=== PATIENT | female | born 1960 | race African-American/Black ===

== ENCOUNTER 2016-06-15 17:31 | Emergency (ER) | payer MEDICARE, OTHER, MEDICAID ==
[~2016-06-15] VITALS: Ht 160 cm; Wt 80.7 kg
[~2016-06-15 17:31] MED LIST: NORCO 5-325 TA1 EACH ORAL; RANITIDINE HCL150 MG ORAL; TYLENOL650 MG/20. ORAL
[2016-06-15 18:12] VITALS: BP 148/91
[2016-06-15] MEDS ORDERED: Acetaminophen 500mg (ES) tab ORAL ONE (18:30)
[2016-06-15 18:53] VITALS: BP 148/91
--- NOTE | 2016-06-15 19:00 | Emergency Room Report ---
History of Present Illness General Chief Complaint: Sore Throat Source: Patient, Medical Record Present Illness HPI 55-year-old female presents to emergency Department complaining of right-sided ear and throat pain x5 days. Patient states she was recently treated with oral amoxicillin and which provided minimal relief. Patient states she is being treated for inner ear infection however continues to have right ear pain. Patient denies discharge report some mild tenderness outside of the ear. She denies Q-tip use. Patient denies fevers or chills. Patient reports continued intermittent cough with phlegm in the throat difficulty time clearing. She also reports nasal congestion worse at night. Patient denies tenderness to the sinuses. She denies any compromise. Patient denies nausea, vomiting. Denies CP , Palpitations, LOC, AMS, dizziness, Changes in Vision, Sensation, paresthesias , or a sudden severe headache. Allergies: Coded Allergies: CODEINE (Unverified Allergy, Intermediate, 09/22/15) Patient History Past Medical History: see triage record Past Surgical History: none Pertinent Family History: none Last Menstrual Period: on menopause Now: No Immunizations: UTD Reviewed Nursing Documentation: PMH: Agreed, PSxH: Agreed Nursing Documentation-PMH Past Medical History: No History, Except For Hx Cardiac Problems: No - hypothyroidism Hx Hypertension: Yes Hx Pacemaker: No Hx Asthma: No Hx COPD: No Hx Diabetes: No Hx Cancer: No Hx Gastrointestinal Problems: No Hx Dialysis: No Hx Neurological Problems: No Hx Cerebrovascular Accident: No Hx Seizures: No Review of Systems All Other Systems: negative except mentioned in HPI Physical Exam Vital Signs Date Time Temp Pulse Resp B/P Pulse Ox O2 Delivery O2 Flow Rate FiO2 06/15/16 17:56 98.6 64 16 148/91 99 Room Air Sp02 EP Interpretation: reviewed, normal General Appearance: no apparent distress, alert, GCS 15, non-toxic Head: normocephalic, atraumatic Eyes: bilateral eye PERRL, bilateral eye normal inspection ENT: hearing grossly normal, normal pharynx, no angioedema, normal voice, uvula midline, moist mucus membranes, nasal congestion, pharyngeal erythema, other - Right ear canal is macerated with d/c noted, TM is WNL. left canal and TM are WNL. mild cobblestoning appearance to posterior pharynx, no exudates. Neck: full range of motion, no meningismus, no bony tend, supple/symm/no masses Respiratory: chest non-tender, lungs clear, normal breath sounds, no rhonchi, no respiratory distress, no retraction, no accessory muscle use, speaking full sentences Cardiovascular #1: regular rate, rhythm, no edema Gastrointestinal: non tender, soft, no guarding, no rebound Rectal: deferred Musculoskeletal: back normal, gait/station normal, normal range of motion, non- tender, no calf tenderness Neurologic: alert, oriented x3, responsive, motor strength/tone normal, sensory intact, speech normal Psychiatric: judgement/insight normal, memory normal, mood/affect normal, no suicidal/homicidal ideation Reflexes: 4+ bicep (R), 4+ bicep (L), 4+ tricep (R), 4+ tricep (L), 4+ knee (R) , 4+ knee (L) Skin: normal color, no rash, warm/dry, well hydrated Lymphatic: no adenopathy Medical Decision Making PA Attestation Dr. Gary is my supervising Physician whom patient management has been discussed with. Diagnostic Impression: Primary Impression: Otitis externa of right ear Qualified Codes: H60.501 - Unspecified acute noninfective otitis externa, right ear Additional Impressions: Upper respiratory infection, acute Post-nasal drainage ER Course Pt. presents to the ED c/o right ear and throat pain x 5 days , with intermittent cough, and difficulty clearing mucous in the throat. nasal congestion worse at night. recently treated with oral abx. Ddx considered but are not limited to OM, OE, mastoiditis, TM perforation, FB, URI, post nasal drainage, pharyngitis. Vital signs: are WNL, pt. is afebrile H&PE are most consistent with otitis externa, and post nasal drainage ORDERS: none required at this time, the diagnosis is clinical -OTOSCOPY: Right Canal is erythematous and macerated in appearance with d/c noted, no TM involvement, no evidence of mastoiditis or preauricular LAD on PE ED INTERVENTIONS: -500mg Tylenol PO DISCHARGE: At this time pt. is stable for d/c to home. With Otic ABX. Will provide printed patient care instructions, and any necessary prescriptions. Care plan and follow up instructions have been discussed with the patient prior to discharge. Last Vital Signs Date Time Temp Pulse Resp B/P Pulse Ox O2 Delivery O2 Flow Rate FiO2 06/15/16 18:53 98.6 16 148/91 99 Room Air 06/15/16 17:56 64 Disposition: HOME, SELF-CARE Condition: Stable Scripts Loratadine (CLARITIN) 10 Mg Capsule 10 MG ORAL DAILY for 14 Days, #14 CAP Prov: Ainsley Yo 06/15/16 Ciprofloxacin/Hydrocortisone (CIPRO HC OTIC SUSPENSION) 10 Ml Drops.susp 6 DROP OT BID, #10 ML Prov: Ainsley Yo 06/15/16 Acetaminophen* (TYLENOL EXTRA STRENGTH*) 500 Mg Tablet 500 MG ORAL Q6H, #30 TAB 0 Refills Prov: Ainsley Yo 06/15/16 Referrals: NON PHYSICIAN (PCP) Patient Instructions: Otitis Externa, Upper Respiratory Infection, Adult Additional Instructions: Take medications as directed. !*! Follow up with PCP in 3-5 days Return sooner to ED if new symptoms occur, or current symptoms become worse. Ainsley Yo Jun 15, 2016 19:00
[2016-06-15] MEDS ORDERED: TYLENOL EXTRA500 MG ORAL (19:02)
[2016-06-15] MEDS ORDERED: CLARITIN10 M2 ORAL (19:02)
[2016-06-15] MEDS ORDERED: CIPRO HC OTIC S10 M1 OT (19:02)
== END 2016-06-15 19:17 | disposition home or self-care (01) ==
LOC: EMR 18:41
DX: H60.501 Unspecified acute noninfective otitis externa, right ear (principal); J06.9 Acute upper respiratory infection, unspecified; R09.82 Postnasal drip; Z88.6 Allergy status to analgesic agent; E03.9 Hypothyroidism, unspecified; I10 Essential (primary) hypertension
CPT/HCPCS: 99282